=== PATIENT | male | born 1960 | race Caucasian/White ===

== ENCOUNTER 2024-05-07 05:02 | Emergency (ER) | payer SELFPAY ==
[2024-05-07] VITALS (9 sets, daily range): BP systolic 105–157; BP diastolic 61–90; PULSE 59–83; RESP 16–22; TEMP 36.7; O2SAT 90–99; BMI 20.5
[2024-05-07 05:38] LABS: Basophils # 0.1 10^3/uL (0.0-0.1); Basophils % 0.8 %; Eosinophils % 12.6 %; Lymphocytes # 1.3 10^3/uL (0.8-4.8); Mean Corpuscular HGB Conc 33.4 g/dL (30-55); Mean Corpuscular Hemoglobin 30.9 pg (27-33); Mean Corpuscular Volume 92.4 fl (82-101); Mean Platelet Volume 10.1 fL (7.4-10.4); Monocytes # 0.9 10^3/uL (0.2-0.9); Monocytes % 11.1 %; Neutrophils # 4.43 10^3/uL (1.8-7.7); Nucleated Red Blood Cells % 0 %; Platelet Count 272 10^3/cmm (157-399); Red Blood Count 4.76 10^6/uL (3.85-5.65); Red Cell Distribution Width 12.8 % (12.1-15.1); White Blood Count 7.64 10^3/uL (3.29-11.43)
--- NOTE | 2024-05-07 05:41 | ED_ITS ---
Documented by User: Francisco Stoll MD 05/07/24 06:07 HPI - Skin/Abscess/Foreign Bdy 2 General: Chief complaint: Skin/Abscess/Foreign Body Stated complaint: Bumps on Head Time Seen by Provider: 05/07/24 05:24 Source: patient and family Mode of arrival: ambulatory Limitations: altered mental status History of Present Illness: History somewhat limited from patient as he is elbow distress from his leg cramps and leg pain. Known meth user. Has a impetigo to bilateral forehead/'s peak's as well as to the posterior neck. No abscess. These are larger patches. He was given doxycycline from a friend has taken 2 tablets now and now has facial swelling with angioedema of the eyelids. Daughter is at bedside and provides most history. Patient with prompting can answer as well though Related Data Previous Rx's Medication Instructions Recorded clindamycin HCl 300 mg capsule 300 mg PO QID 10 days #40 caps 05/07/24 mupirocin 2 % topical ointment 1 applic topical BID #50 grams 05/07/24 Allergies Allergy/AdvReac Type Severity Reaction Status Date / Time doxycycline Allergy ADR-Swelling Verified 05/07/24 05:23 of the Eye Review of Systems 2 General: Reports: 10 or more systems reviewed and unremarkable except in HPI and below Physical Exam 2 Const: COMMON NORMALS: no acute distress, average body habitus, patient oriented x3, alert and well nourished GENERAL APPEARANCE: well kempt and well developed HENMT: COMMON NORMALS: normocephalic, atraumatic, external ears normal and moist oral mucous membranes HEAD & SCALP: normocephalic and atraumatic E XTERNAL EAR: Yes external ears normal Eye: COMMON NORMALS: Equal, round and reactive pupils present, EOMs intact bilaterally and conjunctivae normal CONJUNCTIVA: Yes conjunctivae normal P UPIL: Yes Equal, round and reactive pupils present Neck/C-Spine: COMMON NORMALS: full ROM, no lymphadenopathy and supple Chest: CHEST: Yes Symmetrical chest wall rise and No Surgical scars present (Chest) Resp: COMMON NORMALS: normal respiratory effort, No retractions, No use of accessory muscles and clear to auscultation bilaterally AUSCULTATION: clear to auscultation bilaterally Cardio: COMMON NORMALS: regular rate, regular rhythm, S1 normal heart sound present, S2 normal heart sound present, No gallops present (Cardio), No clicks present (Cardio), No murmurs present (Cardio) and No rub (Cardio) RATE: r egular rate RHYTHM: regular rhythm HEART SOUNDS: S1 normal heart sound present, S2 normal heart sound present and no murmurs PERIPHERAL PULSES: o ther (Radial pulses 2+ and symmetric) GI: COMMON NORMALS: Soft to palpation, non-tender and no masses INSPECTION: No abdominal distension PALPATION: Yes Soft to palpation, No Guarding due to palpation present (GI) and No Rebound tenderness present : COMMON NORMALS: Yes no CVA tenderness BLADDER/KIDNEY EXAM: Yes no CVA tenderness Back/Pelvis: COMMON NORMALS: no CVA tenderness Extremity: COMMON NORMALS: normal to inspection, full ROM, capillary refill normal and no clubbing, cyanosis or edema Neuro: COMMON NORMALS: patient oriented x3 SENSORIUM/ORIENTATION: Yes alert Psych: APPEARANCE: Yes well kempt Skin: COMMON NORMALS: no rashes or lesions noted, no wounds, turgor normal and no jaundice NARRATIVE SKIN EXAM: Bilateral forehead space with large patches of impetigo along with some lymphadenopathy as well as his posterior neck has a half dollar size area of impetigo. He has some drug rash also on his torso and arms. 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 GENERAL SKIN EXAM: no rashes or lesions noted and turgor normal Course 2 ED course: Handoff to Dr. Medley to shift change, labs pending. Vital Signs: Vital signs: Vital Signs Temperature 98.0 F 05/07/24 05:04 Pulse Rate 67 05/07/24 10:09 Respiratory Rate 16 05/07/24 10:09 Blood Pressure 120/79 05/07/24 10:09 Pulse Oximetry 99 05/07/24 10:09 Oxygen Delivery Me thod Room Air 05/07/24 05:04 MDM - Skin/Abscess/Foreign Bdy Medicial Decision Making Handoff to Dr. Medley, workup pending, orders placed for initial care Lab Data 05/07/24 05:26 05/07/24 05:26 Laboratory Results WBC 7.64 10^3/uL (3.29-11.43) 05/07/24 05:26 RBC 4.76 10^6/uL (3.85-5.65) 05/07/24 05:26 Hgb 14.70 g/dL (11.27-16.99) 05/07/24 05:26 Hct 44.0 % (37-53) 05/07/24 05:26 MCV 92.4 fl (82-101) 05/07/24 05:26 MCH 30.9 pg (27-33) 05/07/24 05: MCHC 33.4 g/dL (30-55) 05/07/24 05:26 RDW 12.8 % (12.1-15.1) 05/07/24 05:26 Plt Count 272 10^3/cmm (157-399) 05/07/24 05:26 MPV 10.1 fL (7.4-10.4) 05/07/24 05:26 Neut % (Auto) 58.0 % 05/07/24 05:26 Lymph % (Auto) 17.0 % 05/07/24 05:26 [place] % (Auto) 11.1 % 05/07/24 05:26 Eos % (Auto) 12.6 % 05/07/24 05:26 Baso % (Auto) 0.8 % 05/07/24 05:26 Neut # (Auto) 4.43 10^3/uL (1.8-7.7) 05/07/24 05:26 Lymph # (Auto) 1.3 10^3/uL (0.8-4.8) 05/07/24 05:26 [place] # (Auto) 0.9 10^3/uL (0.2-0.9) 05/07/24 05:26 Eos # (Auto) 1.0 10^3/uL (0.0-0.8) H 05/07/24 05:26 Baso # (Auto) 0.1 10^3/uL (0.0-0.1) 05/07/24 05:26 Nucleated RBC % (auto) 0 % 05/07/24 05:26 Nucleated RBCs # 0.0 /100WBC 05/07/24 05:26 ESR 6 mm/hr (0-10) 05/07/24 05:26 Sodium 136 mmol/L (136-145) 05/07/24 05:26 Potassium 3.9 mmol/L (3.5-5.1) 05/07/24 05:26 Chloride 101 mmol/L (98-107) 05/07/24 05:26 Carbon Dioxide 24 mmol/L (22-29) 05/07/24 05:26 Anion Gap 14.9 (5-19) 05/07/24 05:26 BUN 16 mg/dL (8-23) 05/07/24 05:26 Creatinine 0.8 mg/dL (0.7-1.2) 05/07/24 05:26 GFR Calculation 98.0 mL/min (90-130) 05/07/24 05:26 Glucose 117 mg/dL (65-115) H 05/07/24 05:26 Calculated Osmolality 284 mOsm/kg (285-295) L 05/07/24 05:26 Lactic Acid 1.2 mmol/L (0.5-2.2) 05/07/24 05:26 Calcium 8.9 mg/dL (8.5-10.5) 05/07/24 05:26 Magnesium 2.0 mg/dL (1.7-2.3) 05/07/24 05:26 Total Bilirubin 0.3 mg/dL (0.15-1.2) 05/07/24 05:26 AST 18 U/L (0-40) 05/07/24 05:26 ALT 10 U/L (0-41) 05/07/24 05:26 Alkaline Phosphatase 96 U/L (40-130) 05/07/24 05:26 Creatine Kinase 108 U/L (39-308) 05/07/24 05:26 C-Reactive Protein 5.3 mg/L (0.0-4.9) H 05/07/24 05:26 Total Protein 6.2 g/dL (6.6-8.7) L 05/07/24 05:26 Albumin 3.9 g/dL (3.5-5.2) 05/07/24 05:26 Globulin 2.3 g/dL (1.3-4.6) 05/07/24 05:26 Procalcitonin 0.07 ng/mL (0-0.5) 05/07/24 05:26 Urine Color Yellow (Yellow) 05/07/24 08:00 Urine Appearance Clear (CLEAR) 05/07/24 08:00 Urine pH 5.5 (5-7) 05/07/24 08:00 Ur Specific Maribel 1.027 (1.005-1.030) 05/07/24 08:00 Urine Protein Negative (Negative) 05/07/24 08:00 Urine Glucose (UA) Negative (Normal) 05/07/24 08:00 Urine Ketones Negative (Negative) 05/07/24 08:00 Urine Blood Negative (Negative) 05/07/24 08:00 Urine Nitrate Negative (Negative) 05/07/24 08:00 Urine Bilirubin Negative (Negative) 05/07/24 08:00 Urine Urobilinogen 0.2 mg/dL (Negative) 05/07/24 08:00 Ur Leukocyte Esterase Negative (Negative) 05/07/24 08:00 Urine RBC 6-10 /hpf (0-2) 05/07/24 08:00 Urine WBC 0-5 /hpf (0-5) 05/07/24 08:00 Ur Squamous Epith Cells 0-5 /hpf (0-5) 05/07/24 08:00 Amorphous Sediment Not Reportable 05/07/24 08:00 Urine Bacteria None seen /hpf (NONE) 05/07/24 08:00 Hyaline Casts 2.46 /lpf 05/07/24 08:00 Urine Opiates Screen Negative ng/mL (Negative) 05/07/24 08:00 Ur Barbiturates Screen Negative ng/mL (Negative) 05/07/24 08:00 Ur Phencyclidine Scrn Negative ng/mL (Negative) 05/07/24 08:00 Ur Amphetamines Screen Positive ng/mL (Negative) H 05/07/24 08:00 U Benzodiazepines Scrn Negative ng/mL (Negative) 05/07/24 08:00 Urine Cocaine Screen Negative ng/mL (Negative) 05/07/24 08:00 U Marijuana (THC) Screen Positive ng/mL (Negative) H 05/07/24 08:00 Ethyl Alcohol < 10 mg/dL (0-10) 05/07/24 05:26 No radiology studies performed this visit Discharge Plan Discharge Patient Disposition: Home Clinical Impression: Cellulitis Condition: Stable Prescriptions: New clindamycin HCl 300 mg capsule 300 mg PO QID 10 Days Qty: 40 0RF mupirocin 2 % ointment 1 applic topical BID Qty: 50 0RF Rx Instructions: Affected areas of the scalp Discharge Orders: Discharge ED (Routine); Ordered 05/07/24 Ordered By: Ramone Medley Discharge Diet: Usual diet Discharge Activity: Increase activity as tolerated Patient Instructions: Opioid Safety, Pain Management Activity Restrictions/Additional Instructions: Thank you for choosing [facility] for your healthcare needs today. It is very important that you follow up as instructed or that you return to the Emergency Department should you have concerns or if your condition changes or worsens in any way. You were seen in the emergency room for infection of the scalp. Your white count today was normal your other labs did not show significant abnormalities. Recommend not taking anymore doxycycline instead we will start you on clindamycin 1 tablet 4 times a day for 10 days apply topical mupirocin to the affected areas on the scalp and follow-up with your primary care doctor within the next 3 to 5 days. Sign Out Sign Out Data: Patient Sign Out occurred on 05/07/24 at 05:58. Patient's care was discussed, and care was transferred from Francisco Stoll MD to Ramone Medley DO. Coding Level of Care Code ED Metal Pickling Equipment Operator for Chg Fwd Documented by User: Ramone Medley DO 05/07/24 11:48 HPI - Skin/Abscess/Foreign Bdy 2 General: Chief complaint: Skin/Abscess/Foreign Body Stated complaint: Bumps on Head Time Seen by Provider: 05/07/24 05:24 Related Data Previous Rx's Medication Instructions Recorded clindamycin HCl 300 mg capsule 300 mg PO QID 10 days #40 caps 05/07/24 mupirocin 2 % topical ointment 1 applic topical BID #50 grams 05/07/24 Allergies Allergy/AdvReac Type Severity Reaction Status Date / Time doxycycline Allergy ADR-Swelling Verified 05/07/24 05:23 of the Eye Course 2 Vital Signs: Vital signs: Vital Signs Temperature 98.0 F 05/07/24 05:04 Pulse Rate 67 05/07/24 10:09 Respiratory Rate 16 05/07/24 10:09 Blood Pressure 120/79 05/07/24 10:09 Pulse Oximetry 99 05/07/24 10:09 Oxygen Delivery Me thod Room Air 05/07/24 05:04 MDM - Skin/Abscess/Foreign Bdy Medicial Decision Making Handoff to Dr. Medley, workup pending, orders placed for initial care Care assumed at change of shift. Patient has impetiginous rash with erythema and very mild induration. Believe the swelling in his eyelids is more dependent fluid from the infection. Does not appear to be any preseptal cellulitis. Will switch him to clindamycin. Have him follow-up with his primary care doctor. Also apply topical mupirocin to the area exposed areas. Medical Records I reviewed the patient's medical records. Lab Data I reviewed the patient's lab results. 05/07/24 05:26 05/07/24 05:26 Laboratory Results WBC 7.64 10^3/uL (3.29-11.43) 05/07/24 05:26 RBC 4.76 10^6/uL (3.85-5.65) 05/07/24 05:26 Hgb 14.70 g/dL (11.27-16.99) 05/07/24 05:26 Hct 44.0 % (37-53) 05/07/24 05:26 MCV 92.4 fl (82-101) 05/07/24 05:26 MCH 30.9 pg (27-33) 05/07/24 05:26 MCHC 33.4 g/dL (30-55) 05/07/24 05:26 RDW 12.8 % (12.1-15.1) 05/07/24 05:26 Plt Count 272 10^3/cmm (157-399) 05/07/24 05:26 MPV 10.1 fL (7.4-10.4) 05/07/24 05:26 Neut % (Auto) 58.0 % 05/07/24 05:26 Lymph % (Auto) 17.0 % 05/07/24 05:26 [place] % (Auto) 11.1 % 05/07/24 05:26 Eos % (Auto) 12.6 % 05/07/24 05:26 Baso % (Auto) 0.8 % 05/07/24 05:26 Neut # (Auto) 4.43 10^3/uL (1.8-7.7) 05/07/24 05:26 Lymph # (Auto) 1.3 10^3/uL (0.8-4.8) 05/07/24 05:26 [place] # (Auto) 0.9 10^3/uL (0.2-0.9) 05/07/24 05:26 Eos # (Auto) 1.0 10^3/uL (0.0-0.8) H 05/07/24 05:26 Baso # (Auto) 0.1 10^3/uL (0.0-0.1) 05/07/24 05:26 Nucleated RBC % (auto) 0 % 05/07/24 05:26 Nucleated RBCs # 0.0 /100WBC 05/07/24 05:26 ESR 6 mm/hr (0-10) 05/07/24 05:26 Sodium 136 mmol/L (136-145) 05/07/24 05:26 Potassium 3.9 mmol/L (3.5-5.1) 05/07/24 05:26 Chloride 101 mmol/L (98-107) 05/07/24 05:26 Carbon Dioxide 24 mmol/L (22-29) 05/07/24 05:26 Anion Gap 14.9 (5-19) 05/07/24 05:26 BUN 16 mg/dL (8-23) 05/07/24 05:26 Creatinine 0.8 mg/dL (0.7-1.2) 05/07/24 05:26 GFR Calculation 98.0 mL/min (90-130) 05/07/24 05:26 Glucose 117 mg/dL (65-115) H 05/07/24 05:26 Calculated Osmolality 284 mOsm/kg (285-295) L 05/07/24 05:26 Lactic Acid 1.2 mmol/L (0.5-2.2) 05/07/24 05:26 Calcium 8.9 mg/dL (8.5-10.5) 05/07/24 05:26 Magnesium 2.0 mg/dL (1.7-2.3) 05/07/24 05:26 Total Bilirubin 0.3 mg/dL (0.15-1.2) 05/07/24 05: AST 18 U/L (0-40) 05/07/24 05: ALT 10 U/L (0-41) 05/07/24 05:26 Alkaline Phosphatase 96 U/L (40-130) 05/07/24 05: Creatine Kinase 108 U/L (39-308) 05/07/24 05:26 C-Reactive Protein 5.3 mg/L (0.0-4.9) H 05/07/24 05: Total Protein 6.2 g/dL (6.6-8.7) L 05/07/24 05: Albumin 3.9 g/dL (3.5-5.2) 05/07/24 05: Globulin 2.3 g/dL (1.3-4.6) 05/07/24 05: Procalcitonin 0.07 ng/mL (0-0.5) 05/07/24 05: Urine Color Yellow (Yellow) 05/07/24 08:00 Urine Appearance Clear (CLEAR) 05/07/24 08:00 Urine pH 5.5 (5-7) 05/07/24 08:00 Ur Specific Maribel 1.027 (1.005-1.030) 05/07/24 08:00 Urine Protein Negative (Negative) 05/07/24 08:00 Urine Glucose (UA) Negative (Normal) 05/07/24 08:00 Urine Ketones Negative (Negative) 05/07/24 08:00 Urine Blood Negative (Negative) 05/07/24 08:00 Urine Nitrate Negative (Negative) 05/07/24 08:00 Urine Bilirubin Negative (Negative) 05/07/24 08:00 Urine Urobilinogen 0.2 mg/dL (Negative) 05/07/24 08:00 Ur Leukocyte Esterase Negative (Negative) 05/07/24 08:00 Urine RBC 6-10 /hpf (0-2) 05/07/24 08:00 Urine WBC 0-5 /hpf (0-5) 05/07/24 08:00 Ur Squamous Epith Cells 0-5 /hpf (0-5) 05/07/24 08:00 Amorphous Sediment Not Reportable 05/07/24 08:00 Urine Bacteria None seen /hpf (NONE) 05/07/24 08:00 Hyaline Casts 2.46 /lpf 05/07/24 08:00 Urine Opiates Screen Negative ng/mL (Negative) 05/07/24 08:00 Ur Barbiturates Screen Negative ng/mL (Negative) 05/07/24 08:00 Ur Phencyclidine Scrn Negative ng/mL (Negative) 05/07/24 08:00 Ur Amphetamines Screen Positive ng/mL (Negative) H 05/07/24 08:00 U Benzodiazepines Scrn Negative ng/mL (Negative) 05/07/24 08:00 Urine Cocaine Screen Negative ng/mL (Negative) 05/07/24 08:00 U Marijuana (THC) Screen Positive ng/mL (Negative) H 05/07/24 08:00 Ethyl Alcohol < 10 mg/dL (0-10) 05/07/24 05:26 Discharge Plan Discharge Patient Disposition: Home Clinical Impression: Cellulitis Condition: Stable Prescriptions: New clindamycin HCl 300 mg capsule 300 mg PO QID 10 Days Qty: 40 0RF mupirocin 2 % ointment 1 applic topical BID Qty: 50 0RF Rx Instructions: Affected areas of the scalp Discharge Orders: Discharge ED (Routine); Ordered 05/07/24 Ordered By: Ramone Medley Discharge Diet: Usual diet Discharge Activity: Increase activity as tolerated Patient Instructions: Opioid Safety, Pain Management Activity Restrictions/Additional Instructions: Thank you for choosing [facility] for your healthcare needs today. It is very important that you follow up as instructed or that you return to the Emergency Department should you have concerns or if your condition changes or worsens in any way. You were seen in the emergency room for infection of the scalp. Your white count today was normal your other labs did not show significant abnormalities. Recommend not taking anymore doxycycline instead we will start you on clindamycin 1 tablet 4 times a day for 10 days apply topical mupirocin to the affected areas on the scalp and follow-up with your primary care doctor within the next 3 to 5 days. Sign Out Sign Out Data: Patient Sign Out occurred on 05/07/24 at 05:58. Patient's care was discussed, and care was transferred from Francisco Stoll MD to Ramone Medley DO. Coding Level of Care Code ED Metal Pickling Equipment Operator for Jie Bacon
[2024-05-07] MEDS: clindamycin 900 MG/50 ML PREMIX 100 MG IV (05:48)
[2024-05-07] MEDS: ondansetron 2 mg/ML SDV 2 mL 4 MG IVP (05:49)
[2024-05-07] MEDS: ketorolac 30 mg/mL INJ 15 MG IVP (05:50)
[2024-05-07] MEDS: orphenadrine 30 mg/mL Inj 2 mL 60 MG IVP (05:50)
[2024-05-07] MEDS: mupirocin oint 22 gm 3 APPLIC TOPICAL (05:51)
[2024-05-07 05:54] LABS: Alanine Aminotransferase 10 U/L (0-41); Albumin Level 3.9 g/dL (3.5-5.2); Alkaline Phosphatase 96 U/L (40-130); Anion Gap 14.9 (5-19); Aspartate Amino Transferase 18 U/L (0-40); Blood Urea Nitrogen 16 mg/dL (8-23); C Reactive Protein 5.3 mg/L (0.0-4.9); Calcium 8.9 mg/dL (8.5-10.5); Carbon Dioxide 24 mmol/L (22-29); Chloride 101 mmol/L (98-107); Creatine Phosphokinase 108 U/L (39-308); Creatinine Clr Calc Pharmacy 80.1894; Globulin 2.3 g/dL (1.3-4.6); Glucose 117 mg/dL (65-115); Osmolality Calculated 284 mOsm/kg (285-295); Potassium 3.9 mmol/L (3.5-5.1); Sodium 136 mmol/L (136-145); Total Bilirubin 0.3 mg/dL (0.15-1.2); Total Protein 6.2 g/dL (6.6-8.7)
[2024-05-07 05:55] LABS: Alcohol Level < 10 mg/dL (0-10); Lactic Sepsis W/Reflex 1.2 mmol/L (0.5-2.2)
[2024-05-07 05:56] LABS: Erythrocyte Sedimentation Rate 6 mm/hr (0-10)
[2024-05-07] MEDS: lactated ringers 1,000 ML 999 ML IV (05:59)
[2024-05-07 06:01] LABS: Procalcitonin 0.07 ng/mL (0-0.5)
[2024-05-07 08:18] LABS: Bilirubin Urine Negative (Negative); Blood Urine Negative (Negative); Glucose Urine UA Negative (Normal); Ketones Urine Negative (Negative); Leukocyte Esterase Urine Negative (Negative); Nitrate Urine Negative (Negative); Protein Urine Negative (Negative); Specific Gravity, Urine 1.027 (1.005-1.030); Urine Appearance Clear (CLEAR); Urine Color Yellow (Yellow); Urobilinogen Urine 0.2 mg/dL (Negative); pH Urine 5.5 (5-7)
[2024-05-07 08:21] LABS: Add Urine Microscopic? YES; Bacteria Urine None Seen /hpf; Hyaline Casts Urine 2.46 /lpf; Squamous Epithelial Cell Urine 0-5 /hpf (0-5); WBC Urine 0-5 /hpf (0-5)
[2024-05-07 08:25] LABS: Amphetamines Screen Urine Positive (Negative); Barbiturates Screen Urine Negative (Negative); Benzodiazepines Screen Urine Negative (Negative); Cocaine Screen Urine Negative (Negative); Opiate Screen Urine Negative (Negative); PCP Screen Urine Negative (Negative); THC Screen Urine Positive (Negative)
== END 2024-05-07 10:10 | disposition home or self-care (01) ==
PROVIDERS: Emergency Medicine; Emergency Provider Family Medicine
DX: L03.811 Cellulitis of head [any part, except face] (principal)
CPT/HCPCS: 36415; 80053; 80306; 80307; 81001; 82550; 83605; 83735; 84145; 85025; 85651; 86140; 96374; 96375; 99284; J1885; J2360; J2405; J3490; J7120